=== PATIENT | male | born 1955 | race Caucasian/White ===

== ENCOUNTER → 2017-01-24 | Outpatient (CLI) | payer BC ==
[2017-01-24 09:18] LABS: CHLORIDE,CL 106 mmol/L (98-110); SODIUM,NA 137 mmol/L (136-146)
== END ==
LOC: MW.CHIM 08:33
PROVIDERS: ATTEND Internal Medicine
DX: Z00.00 Encounter for general adult medical examination without abnormal findings (principal); E11.9 Type 2 diabetes mellitus without complications; E78.5 Hyperlipidemia, unspecified
CPT/HCPCS: 36415; 80053; 80061; 83036; 85025

== ENCOUNTER 2018-04-03 19:19 | Emergency (ER) | payer OTHER, BC ==
--- NOTE | 2018-04-03 20:38 | EDM.PDOC ---
ED HPI GENERAL MEDICAL PROBLEM - General Chief Complaint: Upper Extremity Injury/Pain Stated Complaint: CUT ON LEFT ARM- WORK RELATED Time Seen by Provider: 04/03/18 19:32 Source of Information: Reports: Patient History Limitations: Reports: No Limitations - History of Present Illness INITIAL COMMENTS - FREE TEXT/NARRATIVE: HISTORY AND PHYSICAL: History of present illness: Patient is a 62-year-old male who presents to the emergency room today with complaints of left forearm pain that radiates into the left wrist. He states he was at work when a heavy door landed on the mid left forearm causing increased pain and swelling. He does have a superficial abrasion noted at the site. Denies any numbness or tingling to his distal extremities. Denies any previous injury or trauma to the affected extremity. Head or any loss of consciousness. No other extremity or body part involvement. Has been updated within the last 5 years. Review of systems: As per history of present illness and below otherwise all systems reviewed and negative. Past medical history: As per history of present illness and as reviewed below otherwise noncontributory. Surgical history: As per history of present illness and as reviewed below otherwise noncontributory. Social history: No reported history of drug or alcohol abuse. Family history: As per history of present illness and as reviewed below otherwise noncontributory. Physical exam: General: Well-developed and well-nourished 62-year-old male. Alert and oriented. Nontoxic appearing and in no acute distress. HEENT: Atraumatic, normocephalic, pupils equal and reactive bilaterally, negative for conjunctival pallor or scleral icterus, mucous membranes moist, throat clear, neck supple, nontender, trachea midline. No drooling or trismus noted. No meningeal signs Lungs: Clear to auscultation, breath sounds equal bilaterally, chest nontender. Heart: S1S2, regular rate and rhythm without overt murmur Abdomen: Soft, nondistended, nontender. Negative for masses or hepatosplenomegaly. Negative for costovertebral tenderness. Pelvis: Stable nontender. Genitourinary: Deferred. Rectal: Deferred. Skin: Soft tissue swelling noted to the left mid forearm with mild redness and a superficial abrasion noted at the center. Otherwise skin is intact, warm, dry. No lesions or rashes noted. Extremities: Moves all extremities per self without difficulty or deficits, soft tissue swelling noted to the left mid forearm. Full range of motion of the left wrist, hand, fingers, elbow and shoulder. No pain with palpation except the area of soft tissue swelling. Strong radial pulse. Capillary refill less than 3 seconds.CMS intact. Neurovascular unremarkable. Neuro: Awake, alert, oriented. Cranial nerves II through XII unremarkable. Cerebellum unremarkable. Motor and sensory unremarkable throughout. Exam nonfocal. Notes: X-ray shows no acute osseous injuries. This information was shared with the patient. We'll place him in a sling for comfort. Supportive care measures were reviewed and discussed. He voices understanding and is agreeable to plan of care. Denies any further questions at this time. Diagnostics: X-ray Therapeutics: Sling Impression: Left forearm injury Plan: 1. Rest, ice, elevate the affected extremity. Use the sling as directed. 2. Tylenol and/or ibuprofen as needed for pain management. 3. Follow-up with the orthopedic provider in the next 1-2 days. Return to the ED as needed and as discussed. Definitive disposition and diagnosis as appropriate pending reevaluation and review of above. 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 - Related Data Allergies Allergy/AdvReac Type Severity Reaction Status Date / Time mepivacaine HCl Allergy Rash Verified 09/12/16 15:23 [From Carbocaine] Home Meds: Home Meds Aspirin 81 mg PO DAILY 01/03/16 [History] Multivit-Min/FA/Lycopene/Lut [Centrum Silver Ultra Men's] 1 tab PO DAILY [History] Simvastatin [Zocor] 40 mg PO BEDTIME 01/03/16 [History] metFORMIN [Glucophage] 500 mg PO DAILY 01/03/16 [History] Past Medical History HEENT History: Other HEENT History: wears reading glasses, has upper and lower dentures Cardiovascular History: Reports: High Cholesterol Other Cardiovascular History: has some blockage in coronary arteries but "not enough for stenting" Respiratory History: Reports: None Gastrointestinal History: Reports: Chronic Diarrhea Other Gastrointestinal History: after Lap Marlen Genitourinary History: Reports: None Musculoskeletal History: Reports: None Neurological History: Reports: Concussion Psychiatric History: Reports: None Endocrine/Metabolic History: Reports: Diabetes, Type II Hematologic History: Reports: None Immunologic History: Reports: None Oncologic (Cancer) History: Reports: None Dermatologic History: Reports: None - Past Surgical History Head Surgeries/Procedures: Reports: None HEENT Surgical History: Reports: None Respiratory Surgical History: Reports: None GI Surgical History: Reports: Cholecystectomy Male Surgical History: Reports: None Neurological Surgical History: Reports: None Oncologic Surgical History: Reports: None Social & Family History - Family History Family Medical History: Noncontributory - Tobacco Use Smoking Status *Q: Current Every Day Smoker Years of Tobacco use: 25 Packs/Tins Daily: 1 - Recreational Drug Use Recreational Drug Use: No Review of Systems - Review of Systems Review Of Systems: ROS reveals no pertinent complaints other than HPI. ED EXAM, GENERAL - Physical Exam Exam: See Below (See dictation) Course - Vital Signs Last Recorded V/S: Last Vital Signs Temp 97.7 F 04/03/18 19:19 Pulse 61 04/03/18 19:19 Resp 18 04/03/18 19:19 BP 126/85 04/03/18 19:19 Pulse Ox 94 L 04/03/18 19:19 - Orders/Labs/Meds Orders: Active Orders 24 hr Category Date Time Status Forearm 2V Lt [CR] Stat Exams 04/03/18 19:43 Ordered Wrist 2V Lt [CR] Stat Exams 04/03/18 19:44 Ordered DME for Discharge [COMM] Stat Oth 04/03/18 20:33 Ordered Departure - Departure Time of Disposition: 20:37 Disposition: Home, Self-Care 01 Clinical Impression: Injury of left forearm Qualifiers: Encounter type: initial encounter Qualified Code(s): S59.912A - Unspecified injury of left forearm, initial encounter - Discharge Information Referrals: Juan Aguilar MD [Primary Care Provider] - Additional Instructions: The following information is given to patients seen in the emergency department who are being discharged to home. This information is to outline your options for follow-up care. We provide all patients seen in our emergency department with a follow-up referral. The need for follow-up, as well as the timing and circumstances, are variable depending upon the specifics of your emergency department visit. If you don't have a primary care physician on staff, we will provide you with a referral. We always advise you to contact your personal physician following an emergency department visit to inform them of the circumstance of the visit and for follow-up with them and/or the need for any referrals to a consulting specialist. The emergency department will also refer you to a specialist when appropriate. This referral assures that you have the opportunity for follow-up care with a specialist. All of these measure are taken in an effort to provide you with optimal care, which includes your follow-up. Under all circumstances we always encourage you to contact your private physician who remains a resource for coordinating your care. When calling for follow-up care, please make the office aware that this follow-up is from your recent emergency room visit. If for any reason you are refused follow-up, please contact the [facility] Emergency Department at and asked to speak to the emergency department charge nurse. [facility] [address] [place] [id number] [facility] - Orthopedic Clinic Professional [facility] [address] [place] [address], [address] [place] [address] 1. Rest, ice, elevate the affected extremity. Use the sling as directed. 2. Tylenol and/or ibuprofen as needed for pain management. 3. Follow-up with the orthopedic provider in the next 1-2 days. Return to the ED as needed and as discussed. - My Orders Last 24 Hours: My Active Orders 04/03/18 19:43 Forearm 2V Lt [CR] Stat 04/03/18 19:44 Wrist 2V Lt [CR] Stat 04/03/18 20:33 DME for Discharge [COMM] Stat - Assessment/Plan Last 24 Hours: My Active Orders 04/03/18 19:43 Forearm 2V Lt [CR] Stat 04/03/18 19:44 Wrist 2V Lt [CR] Stat 04/03/18 20:33 DME for Discharge [COMM] Stat
[2018-04-04 03:55] VITALS: BP 107/71
--- NOTE | 2018-04-04 15:25 | CR ---
EXAM DATE: 04/03/18 PATIENT'S AGE: 62 Patient: ELSY LAZO Facility: [place], [place] Site . Site : 1955 Study: XRay Extremity Left wrist [id number]/11/2018 8:05:42 PM Ordering Physician: Doctor Kim Final Report: INDICATION: Crush injury. TECHNIQUE: Left wrist, two views. COMPARISON: No prior left rib series for comparison. FINDINGS: Bones: There is normal alignment of the osseous structures with preservation of the carpal rows. No acute fractures or aggressive bone lesions are identified. Joint spaces: The radiocarpal, carpal, and carpometacarpal joints are unremarkable in appearance. Soft tissues: Punctate metallic density projects at the distal margin of left 1st metacarpal on PA view only, no correlate on the lateral projection. IMPRESSION: 1. No acute osseous injuries are identified. 2. Possible foreign body projects at the left 1st metacarpal neck on PA view only. Dictated by Alin Bella MD @ 04/03/2018 8:18:15 PM Dictated by: Alin Bella MD @ 04/03/2018 20:18:19 (Electronic Signature) Report Signed by Proxy. INO
--- NOTE | 2018-04-04 15:26 | CR ---
EXAM DATE: 04/03/18 PATIENT'S AGE: 62 Patient: ELSY LAZO Facility: [place], [place] Site . Site : 1955 Study: XRay Extremity Left forearm [id number]/11/2018 8:06:41 PM Ordering Physician: Doctor Kim Final Report: INDICATION: Crush injury. Steel door fell on arm. TECHNIQUE: Forearm radiograph 2 views COMPARISON: Left wrist series dated 04/03/2018. FINDINGS: No acute fracture of the left radius or ulna. No gross evidence of left elbow joint effusion. On lateral view, a punctate metallic density projects at the distal margin of left 1st metacarpal. IMPRESSION: 1. No acute osseous injuries are identified. 2. Indeterminate metallic density, left 1st metacarpal neck. Dictated by Alin Bella MD @ 04/03/2018 8:24:10 PM Dictated by: Alin Bella MD @ 04/03/2018 20:24:36 (Electronic Signature) Report Signed by Proxy. INO
== END 2018-04-03 21:15 | disposition home or self-care (01) ==
LOC: MW.ED 19:19
DX: S50.812A Abrasion of left forearm, initial encounter (principal); F17.210 Nicotine dependence, cigarettes, uncomplicated; E78.00 Pure hypercholesterolemia, unspecified; E11.9 Type 2 diabetes mellitus without complications; Z79.84 Long term (current) use of oral hypoglycemic drugs; Z79.82 Long term (current) use of aspirin; Z79.899 Other long term (current) drug therapy; W20.8XXA Other cause of strike by thrown, projected or falling object, initial encounter; Y99.0 Civilian activity done for income or pay
CPT/HCPCS: 73090-26-LT; 73090-LT; 73100-26-LT; 73100-LT; 99283

== ENCOUNTER 2023-05-09 03:15 | Emergency (ER) | payer MEDICARE, BC ==
[2023-05-09] MEDS ORDERED: Bupivacaine 0.5% 10 ML SDV INJECT ONE (03:59)
[2023-05-09] MEDS ORDERED: Acetaminophen/oxyCODONE 325-10 MG Tab PO ONE (03:59)
[2023-05-09] MEDS ORDERED: Amoxicillin/Clavulanate K 875-125 MG Tab PO ONE (03:59)
[2023-05-09] MEDS ORDERED: Benzocaine 20% Topical Spray UD MUCMEM ONE (04:02)
[2023-05-09 05:08] VITALS: BP 150/83; PULSE 60
== END 2023-05-09 04:57 | disposition home or self-care (01) ==
LOC: MW.ED 03:15
DX: K02.9 Dental caries, unspecified (principal); E78.00 Pure hypercholesterolemia, unspecified; E11.9 Type 2 diabetes mellitus without complications; Z88.8 Allergy status to other drugs, medicaments and biological substances; Z79.84 Long term (current) use of oral hypoglycemic drugs; Z79.899 Other long term (current) drug therapy
CPT/HCPCS: 99283; A9270; J3490; 99282